=== PATIENT | female | born 1950 | race Caucasian/White ===

== ENCOUNTER 2018-09-11 09:49 | Emergency (ER) | payer MEDICARE ==
[2018-09-11] MEDS ORDERED: ASPIRIN 81 MG TABLET, CHEWABLE PO ONE (10:36)
--- NOTE | 2018-09-11 10:37 | ER Document Report ---
ED Medical Screen (RME) - General Chief Complaint: Chest Pain Stated Complaint: CHEST DISCOMFORT Time Seen by Provider: 09/11/18 10:34 Mode of Arrival: Wheelchair Information source: Patient Notes: This is a pleasant 67-year-old woman with a history of COPD the presents to the emergency room with a warm sensation in her chest spreading out to her arms. She is states that she has had shakiness with this sensation. She has no history of heart problems and this issue started yesterday. TRAVEL OUTSIDE OF THE [place] IN LAST 30 DAYS: No - Related Data Allergies/Adverse Reactions: No Known Allergies Allergy (Verified 09/11/18 09:51) Past Medical History - Social History Chew tobacco use (# tins/day): No Frequency of alcohol use: None Drug Abuse: None - Past Medical History Cardiac Medical History: Reports: Hx Hypercholesterolemia Pulmonary Medical History: Reports: Hx COPD - 2 days ago dx Renal/ Medical History: Denies: Hx Peritoneal Dialysis - Immunizations Hx Diphtheria, Pertussis, Tetanus Vaccination: Yes Physical Exam - Vital signs Vitals: Temp Pulse Resp BP Pulse Ox 98.6 F 87 16 145/87 H 98 09/11/18 10:04 09/11/18 10:04 09/11/18 10:04 09/11/18 10:04 09/11/18 10:04 Course - Vital Signs Vital signs: Temp Pulse Resp BP Pulse Ox 98.6 F 87 16 145/87 H 98 09/11/18 10:04 09/11/18 10:04 09/11/18 10:04 09/11/18 10:04 09/11/18 10:04
--- NOTE | 2018-09-11 11:07 | RADIOLOGY REPORT (SQ) ---
EXAM DESCRIPTION: CHEST SINGLE VIEW COMPLETED DATE/TIME: 09/11/2018 10:47 am REASON FOR STUDY: sob COMPARISON: 03/30/2016 EXAM PARAMETERS: NUMBER OF VIEWS: One view. TECHNIQUE: Single frontal radiographic view of the chest acquired. RADIATION DOSE: NA LIMITATIONS: None. FINDINGS: LUNGS AND PLEURA: Hyperexpansion of the lungs. No infiltrate or effusion or mass. MEDIASTINUM AND HILAR STRUCTURES: No masses. Contour normal. HEART AND VASCULAR STRUCTURES: Heart normal in size. Normal vasculature. BONES: No acute findings. HARDWARE: None in the chest. OTHER: No other significant finding. IMPRESSION: Chronic lung changes with no acute cardiopulmonary findings. TECHNICAL DOCUMENTATION: JOB ID: [id number] [employer]- All Rights Reserved Reading location - IP/workstation name: [email or web address]
[2018-09-11 11:09] LABS: ABSOLUTE BASOPHILS # (AUTO) 0.1 10^3/uL (0.0-0.2); ABSOLUTE EOSINOPHILS # (AUTO) 0.1 10^3/uL (0.0-0.6); ABSOLUTE LYMPHOCYTES (AUTO) 0.7 10^3/uL (0.5-4.7); ABSOLUTE MONOCYTES (AUTO) 0.3 10^3/uL (0.1-1.4); ABSOLUTE NEUT (AUTO) 7.3 10^3/uL (1.7-8.2); BASOPHILS % (AUTO) 0.6 % (0-2); EOSINOPHILS % (AUTO) 0.6 % (0-6); HEMOGLOBIN 13.7 g/dL (12.0-15.5); LYMPHOCYTES % (AUTO) 8.7 % (13-45); MEAN CORPUSCULAR HEMOGLOBIN 31.1 pg (27.0-33.4); MEAN CORPUSCULAR HGB CONC 34.4 g/dL (32.0-36.0); MEAN CORPUSCULAR VOLUME 90 fl (80-97); MONOCYTES % (AUTO) 3.4 % (3-13); PLATELET COUNT 306 10^3/uL (150-450); RED BLOOD COUNT 4.42 10^6/uL (3.72-5.28); RED CELL DISTRIBUTION WIDTH 14.1 % (11.5-14.0); SEGMENTED NEUTROPHILS % (AUTO) 86.7 % (42-78); TOTAL CELLS COUNTED % (AUTO) 100 %; WHITE BLOOD COUNT 8.5 10^3/uL (4.0-10.5)
[2018-09-11] MEDS ORDERED: MAG HYDROX/AL HYDROX/SIMETH SUSP 30 ML UDCUP PO ONE (11:23)
[2018-09-11] MEDS ORDERED: LIDOCAINE 2% VISCOUS SOLN 20 ML UDCUP PO ONE (11:23)
[2018-09-11] MEDS ORDERED: METOCLOPRAMIDE HCL ORAL SOLN 10 MG/10 ML UDCUP PO ONE (11:23)
[2018-09-11 11:26] LABS: ALANINE AMINOTRANSFERASE 21 U/L (9-52); ALBUMIN 4.4 g/dL (3.5-5.0); ALKALINE PHOSPHATASE 48 U/L (38-126); ANION GAP 8 (5-19); ASPARTATE AMINO TRANSFERASE 23 U/L (14-36); BILIRUBIN,DIRECT 0.2 mg/dL (0.0-0.4); BILIRUBIN,TOTAL 0.4 mg/dL (0.2-1.3); BLOOD UREA NITROGEN 10 mg/dL (7-20); CALCIUM 10.1 mg/dL (8.4-10.2); CARBON DIOXIDE 28 mmol/L (22-30); CHLORIDE 99 mmol/L (98-107); CREATINE KINASE 61 U/L (30-135); GLUCOSE 110 mg/dL (75-110); POTASSIUM 4.3 mmol/L (3.6-5.0); SODIUM 135.4 mmol/L (137-145); TOTAL PROTEIN 6.9 g/dL (6.3-8.2)
[2018-09-11 11:38] LABS: CREATINE KINASE MB 0.93 ng/mL (<4.55)
[2018-09-11 11:45] LABS: TROPONIN I < 0.012 ng/mL
--- NOTE | 2018-09-11 12:30 | ER Document Report ---
ED General - General Chief Complaint: Chest Pain Stated Complaint: CHEST DISCOMFORT Time Seen by Provider: 09/11/18 10:34 Mode of Arrival: Wheelchair TRAVEL OUTSIDE OF THE [place] IN LAST 30 DAYS: No - HPI Patient complains to provider of: Warm feeling in chest Notes: Patient coming in for evaluation of a warm feeling in her chest. Patient states this happened now twice in the last 2 days. Patient states that the warm feeling feels like "menopause in my chest". Patient denies any nausea vomiting fevers chills denies any radiation of her pain to her neck or to her shoulders. Patient denies any triggering features such as eating walking drinking or sleeping. Patient states that episodes have happened very randomly. Patient states that history of COPD and is only appropriate bronchodilator medications patient denies any diabetes or hypertension hyperlipidemia. Patient denies any recent travel or antibiotics. Patient does state a possible history of acid reflux however patient does not think that her symptoms are consistent with her acid reflux flares in the past. Patient denies pain but describes as a warming feeling in her chest substernal just above the epigastric region - Related Data Allergies/Adverse Reactions: No Known Allergies Allergy (Verified 09/11/18 09:51) Home Medications: advair. spiriva. daliresp Past Medical History - General Information source: Patient - Social History Smoking Status: Former Smoker Chew tobacco use (# tins/day): No Frequency of alcohol use: None Drug Abuse: None Family History: Reviewed & Not Pertinent Patient has suicidal ideation: No Patient has homicidal ideation: No - Past Medical History Cardiac Medical History: Reports: Hx Hypercholesterolemia Pulmonary Medical History: Reports: Hx COPD - 2 days ago dx Renal/ Medical History: Denies: Hx Peritoneal Dialysis - Immunizations Hx Diphtheria, Pertussis, Tetanus Vaccination: Yes Review of Systems - Review of Systems Constitutional: No symptoms reported EENT: No symptoms reported Cardiovascular: Chest pain - Warm feeling in the chest Respiratory: No symptoms reported Gastrointestinal: No symptoms reported Genitourinary: No symptoms reported Female Genitourinary: No symptoms reported Musculoskeletal: No symptoms reported Skin: No symptoms reported Hematologic/Lymphatic: No symptoms reported Neurological/Psychological: No symptoms reported Physical Exam - Vital signs Vitals: Temp Pulse Resp BP Pulse Ox 98.6 F 87 16 145/87 H 98 09/11/18 10:04 09/11/18 10:04 09/11/18 10:04 09/11/18 10:04 09/11/18 10:04 Interpretation: Normal - General General appearance: Appears well, Alert - HEENT Head: Normocephalic, Atraumatic Eyes: Normal Pupils: PERRL - Respiratory Respiratory status: No respiratory distress Chest status: Nontender Breath sounds: Normal Chest palpation: Normal - Cardiovascular Rhythm: Regular Heart sounds: Normal auscultation Murmur: No - Abdominal Inspection: Normal Distension: No distension Bowel sounds: Normal Tenderness: Nontender Organomegaly: No organomegaly - Back Back: Normal, Nontender - Extremities General upper extremity: Normal inspection, Nontender, Normal color, Normal ROM, Normal temperature General lower extremity: Normal inspection, Nontender, Normal color, Normal ROM, Normal temperature, Normal weight bearing. No: Conchita's sign - Neurological Neuro grossly intact: Yes Cognition: Normal Orientation: AAOx4 Johann Coma Scale Eye Opening: Spontaneous Johann Coma Scale Verbal: Oriented [place] Coma Scale Motor: Obeys Commands Johann Coma Scale Total: 15 Speech: Normal Motor strength normal: LUE, RUE, LLE, RLE Sensory: Normal - Psychological Associated symptoms: Normal affect, Normal mood - Skin Skin Temperature: Warm Skin Moisture: Dry Skin Color: Normal Course - Re-evaluation Re-evalutation: 09/12/18 06:43 EKG troponin chest x-ray did not show any critical pathology. Patient was given a GI cocktail with no further symptoms experienced during her ER stay. Unclear etiology of the warm feeling in her chest did recommend the patient follow-up with her primary care physician will place the patient on Zantac for the next 7days. The patient has atypical chest pain as the patient's chest pain is not suggestive of pulmonary embolus, cardiac ischemia, aortic dissection, or other serious etiology. Given the extremely low risk of these diagnoses further testing and evaluation for these possibilities does not appear to be indicated at this time. The patient has been instructed to return if the symptoms worsen or change in any way. - Vital Signs Vital signs: Temp Pulse Resp BP Pulse Ox 98.3 F 88 16 124/71 97 09/11/18 12:37 09/11/18 12:37 09/11/18 12:37 09/11/18 12:37 09/11/18 12:37 - Laboratory Result Diagrams: 09/11/18 10:55 09/11/18 10:55 Laboratory results interpreted by me: 09/11/18 09/11/18 10:55 10:55 RDW 14.1 H Seg Neutrophils % 86.7 H Lymphocytes % 8.7 L Sodium 135.4 L Discharge - Discharge Clinical Impression: Feeling of warmness, Chest pain, atypical Condition: Good Disposition: HOME, SELF-CARE Instructions: Chest Pain of Unclear Cause ([facility]) Additional Instructions: Your evaluation today shows normal EKG normal chest x-ray normal cardiac studies. Did not have a reason for the warm feeling in her chest this could be related to underlying acid reflux I would recommend taking Zantac as prescribed return to ER if symptoms worsen follow-up with your primary care physician Prescriptions: Ranitidine HCl [Zantac 75 mg Tablet] 75 mg PO BID #14 tablet Forms: Return to Work
[2018-09-11 12:38] VITALS: BP 124/71
--- NOTE | 2018-09-11 18:13 | EKG REPORT ---
SEVERITY:- BORDERLINE ECG - SINUS RHYTHM BORDERLINE T ABNORMALITIES, ANT-LAT LEADS : Confirmed by: Jinny Feldman MD 11-Sep-2018 18:12:56
== END 2018-09-11 12:45 | disposition home or self-care (01) ==
LOC: ER 09:49
DX: R07.89 Other chest pain (principal); J44.9 Chronic obstructive pulmonary disease, unspecified; Z79.899 Other long term (current) drug therapy; Z87.891 Personal history of nicotine dependence
CPT/HCPCS: 93005; 99285; 36415; 82553; 82550; 85025; 80053; 84484; 71045; 93010; J3490; A9270

== ENCOUNTER → 2018-10-22 | Outpatient (CLI) | payer MEDICARE ==
--- NOTE | 2018-10-22 14:01 | WOMENS IMAGING REPORT ---
EXAM DESCRIPTION: 3D SCREENING MAMMO BILAT COMPLETED DATE/TIME: 10/22/2018 9:03 am REASON FOR STUDY: Z12.31 ROUTINE 3D BILATERAL SCREENING Z12.31 ENCNTR SCREEN MAMMOGRAM FOR MALIGNAN T NEOPLASM OF DOMINICK COMPARISON: None. TECHNIQUE: Standard craniocaudal and mediolateral oblique views of each breast recorded using digita l acquisition and breast tomosynthesis. LIMITATIONS: None. FINDINGS: No masses, calcifications or architectural distortion. No areas of suspicion. Read with the assistance of CAD. .[facility] - R2 Cenova Version 1.3 .[facility] - R2 Cenova Version 2.1 .[facility] - R2 Cenova Version 2.4 .[facility] [place] R2 Cenova Version 2.4 .[facility] - R2 [employer] Fixture Repairer Version 9.2 IMPRESSION: NORMAL MAMMOGRAM. BIRADS 1. BREAST DENSITY: b. There are scattered areas of fibroglandular density. BIRAD: 1 NEGATIVE RECOMMENDATION: ROUTINE SCREENING COMMENT: The patient has been notified of the results by letter per SA requirements. Additional no tification policies are in place for contacting patient with suspicious or incomplete findings. Quality ID #[id number]: The [employer] recommends an annual screening mammogram for women aged 40 years or over. This facility utilizes a reminder system to ensure that all patients receive reminder letters, and/or direct phone calls for appointments. This includes reminders for routine scr eening mammograms, diagnostic mammograms, or other Breast Imaging Interventions when appropriate. Th is patient will be placed in the appropriate reminder system. The [employer] (ACR) has developed recommendations for screening MRI of the breast s in certain patient populations, to be used in conjunction with mammography. Breast MRI surveillanc e may be appropriate for women with more than 20% lifetime risk of developing breast cancer as deter mined by genetic testing, significant family history of the disease, or history of mantle radiation f or Hodgkins Disease. ACR Practice Guidelines 2008. DBT Technology DBT is a type of tomographic mammography. With conventional mammography, overlapping breast tissue ma y make lesions difficult to detect, even with good compression. DBT uses an x-ray tube that rotates a round the breast, taking images at different angles. These images are then combined to create thin sl ices of the breast that the radiologist can view as a 3D reconstruction. The [employer] unit can perform full-field digital mammograms (2D imaging); or DBT (3D imaging); or both, in a combination mode that quickly performs both the mammogram and the tomosynthesis scan while the breast is still compressed. PQRS 6045F: Fluoroscopic imaging is not utilized for breast tomosynthesis. TECHNICAL DOCUMENTATION: FINDING NUMBER: (1) ASSESSMENT: (1) JOB ID: [id number] [employer]- All Rights Reserved Reading location - IP/workstation name: [email or web address] [id number]
== END ==
LOC: WI 08:35
PROVIDERS: ATTEND Nurse Practitioner Family
DX: Z12.31 Encounter for screening mammogram for malignant neoplasm of breast (principal)
CPT/HCPCS: 77063; 77067

== ENCOUNTER 2018-11-27 10:08 | Emergency (ER) | payer MEDICARE ==
[2018-11-27 10:20] VITALS: BP 134/84
[2018-11-27] MEDS ORDERED: ASPIRIN 81 MG TABLET, CHEWABLE PO ONE (10:32)
--- NOTE | 2018-11-27 10:35 | ER Document Report ---
ED Medical Screen (RME) - General Chief Complaint: Chest Pain Stated Complaint: RAPID HEART RATE Time Seen by Provider: 11/27/18 10:30 Primary Care Provider: LEDA CAMERON FNP-C [Primary Care Provider] - Follow up as needed Mode of Arrival: Ambulatory Information source: Patient Notes: Patient presents complaining of rapid heart rate intermittently since yesterday. Patient does complain of some chest tenderness as well. Patient states she has had a mild cough but does have COPD. Patient denies any fever nausea or vomiting. I have greeted and performed a rapid initial assessment of this patient. A comprehensive ED assessment and evaluation of the patient, analysis of test results and completion of the medical decision making process will be conducted by additional ED providers. TRAVEL OUTSIDE OF THE [place] IN LAST 30 DAYS: No - Related Data Allergies/Adverse Reactions: No Known Allergies Allergy (Verified 11/27/18 10:10) Past Medical History - Past Medical History Cardiac Medical History: Reports: Hx Hypercholesterolemia Pulmonary Medical History: Reports: Hx COPD - 2 days ago dx Renal/ Medical History: Denies: Hx Peritoneal Dialysis - Immunizations Hx Diphtheria, Pertussis, Tetanus Vaccination: Yes Physical Exam - Vital signs Vitals: Temp Pulse Resp BP Pulse Ox 98.1 F 97 18 134/84 H 90 L 11/27/18 10:18 11/27/18 10:18 11/27/18 10:18 11/27/18 10:18 11/27/18 10:18 - Respiratory Respiratory status: No respiratory distress Breath sounds: Nonproductive cough - Cardiovascular Rhythm: Regular. No: Tachycardia Heart sounds: S1 appreciated, S2 appreciated Course - Vital Signs Vital signs: Temp Pulse Resp BP Pulse Ox 98.1 F 97 18 134/84 H 90 L 11/27/18 10:18 11/27/18 10:18 11/27/18 10:18 11/27/18 10:18 11/27/18 10:18 Doctor's Discharge - Discharge Referrals: LEDA CAMERON FNP-C [Primary Care Provider] - Follow up as needed
[2018-11-27 10:57] LABS: ABSOLUTE EOSINOPHILS # (AUTO) 0.1 10^3/uL (0.0-0.6); ABSOLUTE LYMPHOCYTES (AUTO) 0.8 10^3/uL (0.5-4.7); ABSOLUTE MONOCYTES (AUTO) 0.3 10^3/uL (0.1-1.4); ABSOLUTE NEUT (AUTO) 5.9 10^3/uL (1.7-8.2); BASOPHILS % (AUTO) 0.4 % (0-2); EOSINOPHILS % (AUTO) 1.1 % (0-6); HEMATOCRIT 45.2 % (36.0-47.0); HEMOGLOBIN 14.9 g/dL (12.0-15.5); LYMPHOCYTES % (AUTO) 10.9 % (13-45); MEAN CORPUSCULAR HEMOGLOBIN 29.7 pg (27.0-33.4); MEAN CORPUSCULAR HGB CONC 32.9 g/dL (32.0-36.0); MEAN CORPUSCULAR VOLUME 90 fl (80-97); MONOCYTES % (AUTO) 4.3 % (3-13); PLATELET COUNT 308 10^3/uL (150-450); SEGMENTED NEUTROPHILS % (AUTO) 83.3 % (42-78); TOTAL CELLS COUNTED % (AUTO) 100 %
[2018-11-27 11:08] LABS: APPEARANCE,URINE SLIGHTLY-CLOUDY; BILIRUBIN,URINE NEGATIVE (NEGATIVE); COLOR,URINE YELLOW; GLUCOSE, URINE NEGATIVE (NEGATIVE); KETONES,URINE TRACE mg/dL (NEGATIVE); LEUKOCYTE ESTERASE,URINE NEGATIVE (NEGATIVE); NITRITE,URINE NEGATIVE (NEGATIVE); PROTEIN,URINE NEGATIVE (NEGATIVE); URINE SPECIFIC GRAVITY 1.009; UROBILINOGEN,URINE NEGATIVE mg/dL (<2.0)
[2018-11-27 11:14] LABS: ALANINE AMINOTRANSFERASE 29 U/L (9-52); ALBUMIN 4.3 g/dL (3.5-5.0); ALKALINE PHOSPHATASE 55 U/L (38-126); ANION GAP 10 (5-19); ASPARTATE AMINO TRANSFERASE 26 U/L (14-36); BILIRUBIN,DIRECT 0.3 mg/dL (0.0-0.4); BILIRUBIN,TOTAL 0.6 mg/dL (0.2-1.3); BLOOD UREA NITROGEN 7 mg/dL (7-20); CALCIUM 10.2 mg/dL (8.4-10.2); CARBON DIOXIDE 30 mmol/L (22-30); CHLORIDE 98 mmol/L (98-107); GLUCOSE 102 mg/dL (75-110); POTASSIUM 4.1 mmol/L (3.6-5.0); SODIUM 137.9 mmol/L (137-145); TOTAL PROTEIN 7.2 g/dL (6.3-8.2)
--- NOTE | 2018-11-27 11:36 | RADIOLOGY REPORT (SQ) ---
EXAM DESCRIPTION: CHEST 2 VIEWS COMPLETED DATE/TIME: 11/27/2018 11:21 am REASON FOR STUDY: cp COMPARISON: 09/11/2018 EXAM PARAMETERS: NUMBER OF VIEWS: two views TECHNIQUE: Digital Frontal and Lateral radiographic views of the chest acquired. RADIATION DOSE: NA LIMITATIONS: none FINDINGS: LUNGS AND PLEURA: No opacities, masses or pneumothorax. No pleural effusion. Marked hyper inflation MEDIASTINUM AND HILAR STRUCTURES: No masses or contour abnormalities. HEART AND VASCULAR STRUCTURES: Heart normal size. No evidence for failure. BONES: No acute findings. HARDWARE: None in the chest. OTHER: No other significant finding. IMPRESSION: Advanced COPD. No acute findings. TECHNICAL DOCUMENTATION: JOB ID: [id number] [employer] [facility]- All Rights Reserved Reading location - IP/workstation name: [email or web address]
[2018-11-27] MEDS ORDERED: MAG HYDROX/AL HYDROX/SIMETH SUSP 30 ML UDCUP PO ONE (12:27)
[2018-11-27] MEDS ORDERED: METOCLOPRAMIDE HCL ORAL SOLN 10 MG/10 ML UDCUP PO ONE (12:27)
[2018-11-27] MEDS ORDERED: LIDOCAINE 2% VISCOUS SOLN 20 ML UDCUP PO ONE (12:27)
--- NOTE | 2018-11-27 12:34 | ER Document Report ---
ED General - General Chief Complaint: Chest Pain Stated Complaint: RAPID HEART RATE Time Seen by Provider: 11/27/18 10:30 Primary Care Provider: LEDA CAMERON FNP-C [Primary Care Provider] - Follow up in 3-5 days Mode of Arrival: Ambulatory Information source: Patient Notes: Patient presents emergency department with complaints of fast heart rate and chest on fire. Patient reports that this happened to her last month and she was told she had reflux. She reports it occurred yesterday she went to see her provider Dr. Vidal and he told her it was reflux. It happened again this morning when she was eating coffee and Cheerios she contacted her primary care provider and he told her to come the emergency department for evaluation. She reports she was placed on Prilosec for the symptoms but it does not seem to be working. She reports she received a GI cocktail when she was here in the emergency department last time and it worked. She denies other symptoms such as fever vomiting diarrhea. Denies pain when moving. Denies history of cardiac disease. She does report that Dr. Vidal her primary care provider is setting her up with a controlled area checker for evaluation possible stress test. Patient has history of COPD. Uses home O2 when she rides her stationary bike. Denies fever vomiting diarrhea. TRAVEL OUTSIDE OF THE [place] IN LAST 30 DAYS: No - HPI Onset: This morning Onset/Duration: Persistent Quality of pain: Other - hot sensation Pain Level: 3 Associated symptoms: None Exacerbated by: Denies Relieved by: Denies Similar symptoms previously: Yes Recently seen / treated by doctor: Yes - Related Data Allergies/Adverse Reactions: No Known Allergies Allergy (Verified 11/27/18 10:10) Past Medical History - General Information source: Patient - Social History Smoking Status: Former Smoker Cigarette use (# per day): No Chew tobacco use (# tins/day): No Frequency of alcohol use: None Drug Abuse: None Family History: Reviewed & Not Pertinent Patient has suicidal ideation: No Patient has homicidal ideation: No - Past Medical History Cardiac Medical History: Reports: Hx Hypercholesterolemia Pulmonary Medical History: Reports: Hx COPD - 2 days ago dx Renal/ Medical History: Denies: Hx Peritoneal Dialysis - Immunizations Hx Diphtheria, Pertussis, Tetanus Vaccination: Yes Review of Systems - Review of Systems Notes: Review HPI for review of systems., All other systems negative Physical Exam - Vital signs Vitals: Temp Pulse Resp BP Pulse Ox 98.1 F 97 18 134/84 H 90 L 11/27/18 10:18 11/27/18 10:18 11/27/18 10:18 11/27/18 10:18 11/27/18 10:18 - General General appearance: Appears well, Alert, Anxious In distress: None - HEENT Head: Normocephalic Eyes: Normal Conjunctiva: Normal Extraocular movements intact: Yes Mucous membranes: Moist Neck: Normal, Supple. No: Lymphadenopathy - Respiratory Respiratory status: No respiratory distress Chest status: Nontender Chest palpation: Normal - Cardiovascular Rhythm: Regular Heart sounds: Normal auscultation Murmur: No - Abdominal Inspection: Normal Tenderness: Nontender - Extremities General upper extremity: Normal ROM General lower extremity: Normal ROM - Neurological Neuro grossly intact: Yes Cognition: Normal Orientation: AAOx4 Johann Coma Scale Eye Opening: Spontaneous Johann Coma Scale Verbal: Oriented Speech: Normal - Psychological Associated symptoms: Normal affect, Normal mood - Skin Skin Temperature: Warm Skin Moisture: Dry Skin Color: Normal Course - Re-evaluation Re-evalutation: 11/27/18 12:35 Labs unremarkable. EKG troponin chest x-ray did not show any critical pathology. Patient was given a GI cocktail with no further symptoms experienced during her ER stay. Unclear etiology of the warm feeling in her chest did recommend the patient follow-up with her primary care physician, GI and cardiology for further evaluation. Patient reports she is waiting for cardiology referral. The patient has atypical chest pain as the patient's chest pain is not suggestive of pulmonary embolus, cardiac ischemia, aortic dissection, or other serious etiology. Given the extremely low risk of these diagnoses further testing and evaluation for these possibilities does not appear to be indicated at this time. The patient has been instructed to return if the symptoms worsen or change in any way. 11/27/18 13:19 Patient reports she feels fine now. We discussed treatment for reflux. We also discussed the importance of follow-up with GI and cardiology. - Vital Signs Vital signs: Temp Pulse Resp BP Pulse Ox 98.1 F 97 18 134/84 H 90 L 11/27/18 10:18 11/27/18 10:18 11/27/18 10:18 11/27/18 10:18 11/27/18 10:18 - Laboratory Result Diagrams: 11/27/18 10:35 11/27/18 10:35 Laboratory results interpreted by me: 11/27/18 11/27/18 10:35 10:35 Seg Neutrophils % 83.3 H Lymphocytes % 10.9 L Urine Ketones TRACE H - Diagnostic Test Radiology reviewed: Image reviewed, Reports reviewed - EXAM DESCRIPTION: CHEST 2 VIEWS COMPLETED DATE/TIME: 11/27/2018 11:21 am REASON FOR STUDY: cp COMPARISON: 09/11/2018 EXAM PARAMETERS: NUMBER OF VIEWS: two views TECHNIQUE: Digital Frontal and Lateral radiographic views of the chest acquired. RADIATION DOSE: NA LIMITATIONS: none FINDINGS: LUNGS AND PLEURA: No opacities, masses or pneumothorax. No pleural effusion. Marked hyperinflation MEDIASTINUM AND HILAR STRUCTURES: No masses or contour abnormalities. HEART AND VASCULAR STRUCTURES: Heart normal size. No evidence for failure. BONES: No acute findings. HARDWARE: None in the chest. OTHER: No other significant finding. IMPRESSION: Advanced COPD. No acute findings - EKG Interpretation by Me EKG shows normal: Sinus rhythm Rate: Normal Rhythm: NSR Additional EKG results interpreted by me: 11/27/18 12:[address] elevation no T wave inversion Discharge - Discharge Clinical Impression: feeling of chest heat, feeling of fast heart rate Condition: Stable Disposition: HOME, SELF-CARE Instructions: Chest Pain of Unclear Cause ([facility]), Reflux Disease (GERD) ([facility]) Additional Instructions: *You have been evaluated for feeling of fast heart rate, chest heat *Take your medication as prescribed *Follow up with Dr Vidal within the next week for referrral to GI *Follow up with cardiology- check with Dr. Mederos office to for time of your appointment *Return to ED for worsening condition, changes, needs *Return to ED if not better in 24 hours Referrals: LEDA CAMERON, IT NETWORK ADMINISTRATOR-C [Primary Care Provider] - Follow up in 3-5 days
--- NOTE | 2018-11-27 17:40 | EKG REPORT ---
SEVERITY:- NORMAL ECG - SINUS RHYTHM : Confirmed by: Deloris Kulkarni 27-Nov-2018 17:39:35
== END 2018-11-27 13:50 | disposition home or self-care (01) ==
LOC: ER 10:08
DX: R07.9 Chest pain, unspecified (principal); R00.2 Palpitations; J44.9 Chronic obstructive pulmonary disease, unspecified; Z87.891 Personal history of nicotine dependence
CPT/HCPCS: 93005; 99285; 36415; 83735; 84443; 85025; 80053; 81001; 84484; 71046; 93010; A9270 ×2; J3490

== ENCOUNTER 2018-11-30 11:05 | Emergency (ER) | payer MEDICARE ==
[2018-11-30] MEDS ORDERED: ASPIRIN 81 MG TABLET, CHEWABLE PO ONE (13:34)
[2018-11-30 13:46] LABS: ABSOLUTE LYMPHOCYTES (AUTO) 0.9 10^3/uL (0.5-4.7); ABSOLUTE MONOCYTES (AUTO) 0.3 10^3/uL (0.1-1.4); ABSOLUTE NEUT (AUTO) 4.9 10^3/uL (1.7-8.2); BASOPHILS % (AUTO) 0.3 % (0-2); EOSINOPHILS % (AUTO) 0.6 % (0-6); HEMATOCRIT 42.1 % (36.0-47.0); HEMOGLOBIN 13.9 g/dL (12.0-15.5); LYMPHOCYTES % (AUTO) 14.8 % (13-45); MEAN CORPUSCULAR HEMOGLOBIN 29.8 pg (27.0-33.4); MEAN CORPUSCULAR VOLUME 91 fl (80-97); MONOCYTES % (AUTO) 5.6 % (3-13); PLATELET COUNT 296 10^3/uL (150-450); RED BLOOD COUNT 4.65 10^6/uL (3.72-5.28); RED CELL DISTRIBUTION WIDTH 13.8 % (11.5-14.0); SEGMENTED NEUTROPHILS % (AUTO) 78.7 % (42-78); TOTAL CELLS COUNTED % (AUTO) 100 %; WHITE BLOOD COUNT 6.3 10^3/uL (4.0-10.5)
[2018-11-30 13:50] LABS: INTERNATIONAL RATION (INR) 0.83; PROTHROMBIN TIME 11.8 SEC (11.4-15.4)
[2018-11-30 13:53] LABS: ALANINE AMINOTRANSFERASE 28 U/L (9-52); ALBUMIN 4.3 g/dL (3.5-5.0); ALKALINE PHOSPHATASE 54 U/L (38-126); ANION GAP 11 (5-19); ASPARTATE AMINO TRANSFERASE 24 U/L (14-36); BILIRUBIN,DIRECT 0.3 mg/dL (0.0-0.4); BILIRUBIN,TOTAL 0.4 mg/dL (0.2-1.3); BLOOD UREA NITROGEN 6 mg/dL (7-20); CALCIUM 9.8 mg/dL (8.4-10.2); CARBON DIOXIDE 30 mmol/L (22-30); CHLORIDE 95 mmol/L (98-107); CREATINE KINASE 51 U/L (30-135); GLUCOSE 105 mg/dL (75-110); POTASSIUM 4.4 mmol/L (3.6-5.0); SODIUM 135.5 mmol/L (137-145)
[2018-11-30 14:04] LABS: CREATINE KINASE MB 0.95 ng/mL (<4.55)
[2018-11-30 14:06] LABS: TROPONIN I < 0.012 ng/mL
--- NOTE | 2018-11-30 14:06 | RADIOLOGY REPORT (SQ) ---
EXAM DESCRIPTION: CHEST SINGLE VIEW COMPLETED DATE/TIME: 11/30/2018 1:50 pm REASON FOR STUDY: CP COMPARISON: None. EXAM PARAMETERS: NUMBER OF VIEWS: One view. TECHNIQUE: Single frontal radiographic view of the chest acquired. RADIATION DOSE: NA LIMITATIONS: None. FINDINGS: LUNGS AND PLEURA: Hyperinflation of the lungs consistent with COPD. MEDIASTINUM AND HILAR STRUCTURES: No masses. Contour normal. HEART AND VASCULAR STRUCTURES: The heart is normal with normal pulmonary vasculature. BONES: No acute findings. HARDWARE: None in the chest. OTHER: No other significant finding. IMPRESSION: COPD. TECHNICAL DOCUMENTATION: JOB ID: [id number] [employer]- All Rights Reserved Reading location - IP/workstation name: [email or web address]
[2018-11-30] MEDS ORDERED: SUCRALFATE 1 GM TABLET PO ONE (15:15)
[2018-11-30] MEDS ORDERED: FAMOTIDINE INJ/PF 20 MG/2 ML SDV IV ONE (15:16)
--- NOTE | 2018-11-30 16:23 | EKG REPORT ---
SEVERITY:- BORDERLINE ECG - SINUS RHYTHM PROBABLE LEFT ATRIAL ABNORMALITY : Confirmed by: Deloris Kulkarni 30-Nov-2018 16:22:28
--- NOTE | 2018-11-30 16:23 | EKG REPORT ---
SEVERITY:- NORMAL ECG - SINUS RHYTHM : Confirmed by: Deloris Kulkarni 30-Nov-2018 16:22:20
[2018-11-30] MEDS ORDERED: MAG HYDROX/AL HYDROX/SIMETH SUSP 30 ML UDCUP PO ONE (16:27)
[2018-11-30] MEDS ORDERED: LIDOCAINE 2% VISCOUS SOLN 20 ML UDCUP PO ONE (16:27)
[2018-11-30] MEDS ORDERED: METOCLOPRAMIDE HCL ORAL SOLN 10 MG/10 ML UDCUP PO ONE (16:27)
--- NOTE | 2018-11-30 16:57 | ER Document Report ---
ED General - General Chief Complaint: Chest Pain Stated Complaint: RAPID HEARTBEAT Time Seen by Provider: 11/30/18 13:34 Primary Care Provider: LEDA CAMERON FNP-C [Primary Care Provider] - Follow up as needed Notes: Patient was seen at this facility on 11/27/2018 for similar symptoms as today's visit. Patient is a 68-year-old female presents to the emergency department complaining of a burning sensation in her chest. States it radiates up into her throat. Patient states she has been to this facility multiple times for same. States she is always told that it is indigestion and was placed on omeprazole. States she takes 20 mg once a day. Patient states today she got very concerned that it was her heart which presents her to the emergency room. Patient is denying shortness of breath, diaphoresis, nausea, vomiting. States pain started this morning after drinking coffee. Past medical history: GERD, COPD (patient states she quit smoking over 10 years ago) Medications: Omeprazole Allergies: None TRAVEL OUTSIDE OF THE [place] IN LAST 30 DAYS: No - Related Data Allergies/Adverse Reactions: No Known Allergies Allergy (Verified 11/30/18 11:05) Past Medical History - General Information source: Patient - Social History Smoking Status: Former Smoker Family History: Reviewed & Not Pertinent Patient has suicidal ideation: No Patient has homicidal ideation: No - Past Medical History Cardiac Medical History: Reports: Hx Hypercholesterolemia Pulmonary Medical History: Reports: Hx COPD - 2 days ago dx Renal/ Medical History: Denies: Hx Peritoneal Dialysis - Immunizations Hx Diphtheria, Pertussis, Tetanus Vaccination: Yes Review of Systems - Review of Systems Constitutional: No symptoms reported EENT: No symptoms reported Cardiovascular: See HPI Respiratory: No symptoms reported Gastrointestinal: See HPI Genitourinary: No symptoms reported Female Genitourinary: No symptoms reported Musculoskeletal: No symptoms reported Skin: No symptoms reported Hematologic/Lymphatic: No symptoms reported Neurological/Psychological: No symptoms reported Physical Exam - Vital signs Vitals: Temp Pulse Resp BP Pulse Ox 98.1 F 98 16 149/77 H 91 L 11/30/18 11:15 11/30/18 11:15 11/30/18 11:15 11/30/18 11:15 11/30/18 11:15 - Notes Notes: GENERAL: Alert, interacts well. No acute distress. HEAD: Normocephalic, atraumatic. EYES: Pupils equal, round, and reactive to light. Extraocular movements intact. ENT: Oral mucosa moist, tongue midline. NECK: Full range of motion. Supple. Trachea midline. LUNGS: Clear to auscultation bilaterally, no wheezes, rales, or rhonchi. No respiratory distress. HEART: Regular rate and rhythm. No murmur ABDOMEN: Soft, non-tender. Non-distended. Bowel sounds present in all 4 quadrants. EXTREMITIES: Moves all 4 extremities spontaneously. No edema, normal radial and dorsalis pedis pulses bilaterally. No cyanosis. BACK: no cervical, thoracic, lumbar midline tenderness. No saddle anesthesia, normal distal neurovascular exam. NEUROLOGICAL: Alert and oriented x3. Normal speech. cranial nerves II through XII grossly intact PSYCH: Normal affect, normal mood. SKIN: Warm, dry, normal turgor. No rashes or lesions noted. Course - Re-evaluation Re-evalutation: Patient is very concerned that this burning sensation is her heart. States she has been told that it is indigestion multiple times and she does not believe it. Discussed doing cardiac enzymes which would potentially lead us in the direction that this is not cardiac in nature. Patient is voicing understanding and wishes to continue with treatment plan. Patient's initial EKG shows a sinus rhythm rate of 98, QTc 435, no ST segment elevations or depressions noted. Patient's initial troponin negative Patient's repeat troponin also negative, repeat EKG shows a sinus rhythm rate 83, QTc 428, no ST segment elevations or depressions noted. Patient initially states after Carafate and Pepcid her "burning sensation" in her chest overall feels better but is not completely gone. She states a GI cocktail helped her in the past. GI cocktail ordered and administered. Patient states she no longer has any chest pain. Patient's heart score is a 2 due to her age only. Patient states she has an appointment with Dr. Mejias biofuels plant operations engineer on . Discussed need to keep that appointment and also return to the emergency room should she have any other concerns. Patient voices understanding, stable for discharge. 11/30/18 16:58 - Vital Signs Vital signs: Temp Pulse Resp BP Pulse Ox 98.1 F 98 18 124/73 98 11/30/18 11:15 11/30/18 11:15 11/30/18 13:01 11/30/18 13:01 11/30/18 13:52 - Laboratory Result Diagrams: 11/30/18 12:16 11/30/18 12:16 Laboratory results interpreted by me: 11/30/18 11/30/18 12:16 12:16 Seg Neutrophils % 78.7 H Sodium 135.5 L Chloride 95 L BUN 6 L Discharge - Discharge Clinical Impression: Gastritis Qualifiers: Gastritis type: unspecified gastritis Chronicity: acute Gastritis bleeding: without bleeding Qualified Code(s): K29.00 - Acute gastritis without bleeding Condition: Stable Disposition: HOME, SELF-CARE Instructions: Reflux Disease (GERD) ([facility]) Additional Instructions: As I discussed you have been seen and treated in the emergency department for your chest pain. Your chest pain appears to be indigestion related. Your EKG and cardiac enzymes were all normal during her visit here in the emergency room. This does not mean you should not follow-up with a biofuels plant operations engineer. Reconsignment Clerk can do further testing to rule out any injury to your heart. Please make sure you are taking prescription medications as prescribed and follow-up with your primary care provider as needed. Please return to the emergency room for any other concerns. Prescriptions: Famotidine [Pepcid 40 mg Tablet] 40 mg PO AC #30 tablet Sucralfate [Carafate 1 gm Tablet] 1 gm PO QID #60 tablet Referrals: LEDA CAMERON FNP-C [Primary Care Provider] - Follow up as needed
[2018-11-30 17:23] VITALS: BP 128/67
== END 2018-11-30 17:23 | disposition home or self-care (01) ==
LOC: ER 11:05
DX: K29.00 Acute gastritis without bleeding (principal); R07.9 Chest pain, unspecified; K21.9 Gastro-esophageal reflux disease without esophagitis; J44.9 Chronic obstructive pulmonary disease, unspecified; E78.00 Pure hypercholesterolemia, unspecified
CPT/HCPCS: 93005; 99285; 96374; 36415; 82553; 82550; 85025; 85610; 80053; 84484; 71045; 93010; A9270 ×3; J3490; S0028

== ENCOUNTER 2019-04-23 05:47 | Emergency (ER) | payer MEDICARE ==
[2019-04-23] MEDS ORDERED: ASPIRIN 81 MG TABLET, CHEWABLE PO ONE (06:58)
[2019-04-23 07:12] LABS: ABSOLUTE EOSINOPHILS # (AUTO) 0.1 10^3/uL (0.0-0.6); ABSOLUTE LYMPHOCYTES (AUTO) 0.7 10^3/uL (0.5-4.7); ABSOLUTE MONOCYTES (AUTO) 0.3 10^3/uL (0.1-1.4); ABSOLUTE NEUT (AUTO) 3.5 10^3/uL (1.7-8.2); BASOPHILS % (AUTO) 0.6 % (0-2); EOSINOPHILS % (AUTO) 1.1 % (0-6); HEMATOCRIT 38.7 % (36.0-47.0); HEMOGLOBIN 12.9 g/dL (12.0-15.5); LYMPHOCYTES % (AUTO) 15.8 % (13-45); MEAN CORPUSCULAR HEMOGLOBIN 29.8 pg (27.0-33.4); MEAN CORPUSCULAR HGB CONC 33.4 g/dL (32.0-36.0); MEAN CORPUSCULAR VOLUME 89 fl (80-97); PLATELET COUNT 302 10^3/uL (150-450); RED BLOOD COUNT 4.33 10^6/uL (3.72-5.28); RED CELL DISTRIBUTION WIDTH 13.9 % (11.5-14.0); SEGMENTED NEUTROPHILS % (AUTO) 76.5 % (42-78); TOTAL CELLS COUNTED % (AUTO) 100 %; WHITE BLOOD COUNT 4.6 10^3/uL (4.0-10.5)
--- NOTE | 2019-04-23 07:34 | RADIOLOGY REPORT (SQ) ---
Chest single view on 04/23/2019 at 7:09 AM CLINICAL INDICATION: Chest pain COMPARISON: 11/30/2018 FINDINGS: Emphysematous changes of the lungs are noted. Vascular calcification is noted in the aorta. The lungs are otherwise clear. Cardiac, hilar and mediastinal contours are within normal limits. Pulmonary vascularity is within normal limits. IMPRESSION: No significant change and no acute disease.
[2019-04-23 07:38] LABS: ALBUMIN 4.1 g/dL (3.5-5.0); ALKALINE PHOSPHATASE 48 U/L (38-126); ANION GAP 7 (5-19); ASPARTATE AMINO TRANSFERASE 24 U/L (14-36); BILIRUBIN,DIRECT 0.2 mg/dL (0.0-0.4); BILIRUBIN,TOTAL 0.7 mg/dL (0.2-1.3); BLOOD UREA NITROGEN 4 mg/dL (7-20); CALCIUM 9.4 mg/dL (8.4-10.2); CARBON DIOXIDE 30 mmol/L (22-30); CHLORIDE 98 mmol/L (98-107); CREATINE KINASE 88 U/L (30-135); GLUCOSE 103 mg/dL (75-110); TOTAL PROTEIN 6.8 g/dL (6.3-8.2)
[2019-04-23 07:51] LABS: TROPONIN I < 0.012 ng/mL
--- NOTE | 2019-04-23 08:17 | ER Document Report ---
ED Cardiac - General Chief Complaint: Chest Tightness Stated Complaint: TIGHT CHEST,LOSS OF APPETITE Time Seen by Provider: 04/23/19 07:26 Primary Care Provider: LEDA CAMERON FNP-C [Primary Care Provider] - Follow up as needed Mode of Arrival: Medic Information source: Patient TRAVEL OUTSIDE OF THE [place] IN LAST 30 DAYS: No - HPI Notes: Patient presents with central chest pain that is sharp. It is mild to moderate in intensity. It does radiate over the left chest. It does not seem to have anything that makes it better or worse. She has had no increase of shortness of breath with it. No new cough. No cold or congestion. She states she has had this exact same pain numerous times and each time she has been told is reflux. She is also had a previous stress test in January of this year that was "nondiagnostic. She saw her recruitment consultant yesterday, Dr. Kirkpatrick. Dr. Kirkpatrick ordered an echo. Patient has had no vomiting or diarrhea. Patient states it is possible that she is under stress lately but she is unsure. The pain has been somewhat of a sharp and pressure sensation. - Related Data Allergies/Adverse Reactions: No Known Allergies Allergy (Verified 11/30/18 11:05) Past Medical History - General Information source: Patient - Social History Smoking Status: Former Smoker Frequency of alcohol use: None Drug Abuse: None Family History: Reviewed & Not Pertinent Patient has suicidal ideation: No Patient has homicidal ideation: No - Past Medical History Cardiac Medical History: Reports: Hx Hypercholesterolemia Pulmonary Medical History: Reports: Hx COPD - 2 days ago dx Renal/ Medical History: Denies: Hx Peritoneal Dialysis - Immunizations Hx Diphtheria, Pertussis, Tetanus Vaccination: Yes Review of Systems - Review of Systems Constitutional: denies: Chills, Fever Cardiovascular: Chest pain. denies: Palpitations Respiratory: denies: Cough, Hemoptysis Gastrointestinal: denies: Abdominal pain, Diarrhea, Vomiting -: Yes All other systems reviewed and negative Physical Exam - Vital signs Vitals: Temp Pulse Resp BP Pulse Ox 97.7 F 94 18 132/82 H 94 04/23/19 05:51 04/23/19 05:51 04/23/19 05:51 04/23/19 05:51 04/23/19 05:51 Interpretation: Normal - General General appearance: Appears well, Alert - HEENT Head: Normocephalic, Atraumatic Eyes: Normal Pupils: PERRL - Respiratory Respiratory status: No respiratory distress Chest status: Nontender Breath sounds: Decreased air movement Chest palpation: Normal - Cardiovascular Rhythm: Regular Heart sounds: Normal auscultation Murmur: No - Abdominal Inspection: Normal Distension: No distension Bowel sounds: Normal Tenderness: Nontender Organomegaly: No organomegaly - Back Back: Normal, Nontender - Extremities General upper extremity: Normal inspection, Nontender, Normal color, Normal ROM, Normal temperature General lower extremity: Normal inspection, Nontender, Normal color, Normal ROM, Normal temperature, Normal weight bearing. No: Conchita's sign - Neurological Neuro grossly intact: Yes Cognition: Normal Orientation: AAOx4 [place] Coma Scale Eye Opening: Spontaneous Johann Coma Scale Verbal: Oriented [place] Coma Scale Motor: Obeys Commands Johann Coma Scale Total: 15 Speech: Normal Motor strength normal: LUE, RUE, LLE, RLE Sensory: Normal - Psychological Associated symptoms: Normal affect, Normal mood - Skin Skin Temperature: Warm Skin Moisture: Dry Skin Color: Normal Course - Re-evaluation Re-evalutation: 04/23/19 08:17 Patient presents with chest pain. She states it feels exactly like the previous time she was diagnosed with reflux. She has had a recent stress test that was nondiagnostic. She has no enzyme changes or EKG changes. I did discuss the case with her recruitment consultant who recommends that she be discharged and follow-up with them as an outpatient as they have an echo arranged. Patient is currently pain-free. I feel that outpatient work-up is appropriate course at this time. - Vital Signs Vital signs: Temp Pulse Resp BP Pulse Ox 97.7 F 94 20 123/68 100 04/23/19 05:51 04/23/19 05:51 04/23/19 07:00 04/23/19 06:52 04/23/19 07:00 - Laboratory Result Diagrams: 04/23/19 06:56 04/23/19 06:56 Laboratory results interpreted by me: 04/23/19 06:56 Sodium 135.0 L BUN 4 L - Diagnostic Test Radiology reviewed: Image reviewed, Reports reviewed - EKG Interpretation by Me EKG shows normal: Sinus rhythm Rate: Normal - 74 Rhythm: NSR Organ/QRS: No: Right axis deviation, Left axis deviation Discharge - Discharge Clinical Impression: Chest pain Qualifiers: Chest pain type: unspecified Qualified Code(s): R07.9 - Chest pain, unspecified Condition: Stable Disposition: HOME, SELF-CARE Instructions: Chest Pain of Unclear Cause ([facility]) Additional Instructions: Please call Dr. Kirkpatrick today to reschedule follow-up. Prescriptions: Lorazepam [Ativan 0.5 mg Tablet] 0.5 mg PO BID #12 tab Referrals: SUHAS KIRKPATRICK PA-C [PHYSICIAN DRY ROASTER] - Follow up tomorrow
[2019-04-23 09:05] VITALS: BP 123/76
--- NOTE | 2019-04-23 09:11 | EKG REPORT ---
SEVERITY:- BORDERLINE ECG - SINUS RHYTHM BORDERLINE T ABNORMALITIES, ANT-LAT LEADS : Confirmed by: Deloris Kulkarni 23-Apr-2019 09:11:07
== END 2019-04-23 09:06 | disposition home or self-care (01) ==
LOC: ER 05:47
DX: R07.89 Other chest pain (principal); J44.9 Chronic obstructive pulmonary disease, unspecified; Z87.891 Personal history of nicotine dependence; Z87.19 Personal history of other diseases of the digestive system
CPT/HCPCS: 93005; 36415; 82553; 82550; 85025; 80053; 84484; 71045; 93010; A9270; 99285

== ENCOUNTER 2019-07-19 16:10 | Emergency (ER) | payer MEDICARE ==
--- NOTE | 2019-07-19 17:02 | ER Document Report ---
ED Medical Screen (RME) - General Chief Complaint: Shortness Of Breath Stated Complaint: SHAKING/WARM SENSATION IN CHEST/DIFFICULTY BREATHI Time Seen by Provider: 07/19/19 16:45 Primary Care Provider: LEDA CAMERON FNP-C [Primary Care Provider] - Follow up as needed Mode of Arrival: Ambulatory Information source: Patient Notes: 68-year-old female with history of COPD presents emergency department with chief complaint of chest pain, shakiness and shortness of breath. Patient reports chest pain has been intermittent over the last few days, she states that she thought it was anxiety although she now she is getting concerned that maybe she was having a heart attack. She denies radiation of the pain, states the pain is intermittent and achy in nature. She denies any history of [place]. She is a former smoker, quit 10 years ago. She is speaking in full and complete sentences with no acute distress noted. I have greeted and performed a rapid initial assessment of this patient. A comprehensive ED assessment and evaluation of the patient, analysis of test results and completion of the medical decision making process will be conducted by additional ED providers. I have specifically instructed the patient or family members with the patient to immediately return to any nursing staff should anything change in the patient's condition or with their chief complaint. TRAVEL OUTSIDE OF THE [place] IN LAST 30 DAYS: No - Related Data Allergies/Adverse Reactions: No Known Allergies Allergy (Verified 11/30/18 11:05) Home Medications: Zoloft Past Medical History - Past Medical History Cardiac Medical History: Reports: Hx Hypercholesterolemia Pulmonary Medical History: Reports: Hx COPD - 2 days ago dx Renal/ Medical History: Denies: Hx Peritoneal Dialysis - Immunizations Hx Diphtheria, Pertussis, Tetanus Vaccination: Yes Physical Exam - Vital signs Vitals: Temp Pulse Resp BP Pulse Ox 98.1 F 105 H 18 133/68 H 95 07/19/19 16:48 07/19/19 16:48 07/19/19 16:48 07/19/19 16:48 07/19/19 16:48 Course - Vital Signs Vital signs: Temp Pulse Resp BP Pulse Ox 98.1 F 105 H 18 133/68 H 95 07/19/19 16:48 07/19/19 16:48 07/19/19 16:48 07/19/19 16:48 07/19/19 16:48 Doctor's Discharge - Discharge Referrals: LEDA CAMERON, SUPERVISOR [employer]QU[employer] YE[employer]-C [Primary Care Provider] - Follow up as needed
--- NOTE | 2019-07-19 17:48 | RADIOLOGY REPORT (SQ) ---
EXAM DESCRIPTION: CHEST 2 VIEWS COMPLETED DATE/TIME: 07/19/2019 4:20 pm REASON FOR STUDY: chest pain COMPARISON: Chest radiograph, 04/23/2019 EXAM PARAMETERS: NUMBER OF VIEWS: two views TECHNIQUE: Digital Frontal and Lateral radiographic views of the chest acquired. RADIATION DOSE: NA LIMITATIONS: none FINDINGS: LUNGS AND PLEURA: The lungs are hyperinflated. No opacities, masses or pneumothorax. No p leural effusion. MEDIASTINUM AND HILAR STRUCTURES: No masses or contour abnormalities. HEART AND VASCULAR STRUCTURES: Heart normal size. No evidence for failure. BONES: No acute findings. HARDWARE: None in the chest. OTHER: No other significant finding. IMPRESSION: No acute cardiopulmonary disease. Hyperinflated lungs which can be seen with obstructiv e lung disease. TECHNICAL DOCUMENTATION: JOB ID: [id number] Reissued- All Rights Reserved Reading location - IP/workstation name: [email or web address]
[2019-07-19 18:06] LABS: ABSOLUTE EOSINOPHILS # (AUTO) 0.1 10^3/uL (0.0-0.6); ABSOLUTE LYMPHOCYTES (AUTO) 0.9 10^3/uL (0.5-4.7); ABSOLUTE MONOCYTES (AUTO) 0.5 10^3/uL (0.1-1.4); ABSOLUTE NEUT (AUTO) 6.2 10^3/uL (1.7-8.2); BASOPHILS % (AUTO) 0.5 % (0-2); EOSINOPHILS % (AUTO) 1.3 % (0-6); HEMATOCRIT 44.1 % (36.0-47.0); HEMOGLOBIN 14.8 g/dL (12.0-15.5); LYMPHOCYTES % (AUTO) 11.2 % (13-45); MEAN CORPUSCULAR HEMOGLOBIN 30.3 pg (27.0-33.4); MEAN CORPUSCULAR HGB CONC 33.5 g/dL (32.0-36.0); MEAN CORPUSCULAR VOLUME 91 fl (80-97); PLATELET COUNT 300 10^3/uL (150-450); RED BLOOD COUNT 4.88 10^6/uL (3.72-5.28); TOTAL CELLS COUNTED % (AUTO) 100 %; WHITE BLOOD COUNT 7.6 10^3/uL (4.0-10.5)
[2019-07-19 18:24] LABS: ALBUMIN 4.4 g/dL (3.5-5.0); ALKALINE PHOSPHATASE 49 U/L (38-126); ANION GAP 8 (5-19); ASPARTATE AMINO TRANSFERASE 27 U/L (14-36); BILIRUBIN,DIRECT 0.2 mg/dL (0.0-0.4); BILIRUBIN,TOTAL 0.4 mg/dL (0.2-1.3); BLOOD UREA NITROGEN 8 mg/dL (7-20); CALCIUM 9.7 mg/dL (8.4-10.2); CARBON DIOXIDE 28 mmol/L (22-30); CHLORIDE 103 mmol/L (98-107); GLUCOSE 113 mg/dL (75-110); POTASSIUM 3.7 mmol/L (3.6-5.0); TOTAL PROTEIN 7.2 g/dL (6.3-8.2)
--- NOTE | 2019-07-19 19:05 | ER Document Report ---
ED General - General Chief Complaint: Shortness Of Breath Stated Complaint: SHAKING/WARM SENSATION IN CHEST/DIFFICULTY BREATHI Time Seen by Provider: 07/19/19 16:45 Primary Care Provider: BUFFY SAENZ MD [ACTIVE STAFF] - Follow up in 3-5 days HARRIS RÍOS MD [COMMUNITY BASED STAFF] - Follow up in 3-5 days LEDA CAEMRON, CANDY POLISHER-C [Primary Care Provider] - Follow up in 3-5 days DANIEL ARZOLA MD [EMERITUS] - Follow up in 1 month Mode of Arrival: Ambulatory Notes: Patient is a 68-year-old female who presents to the emergency department with shakiness and shortness of breath. Patient states that her symptoms have been going on off and on since September 2018. She denies any pain, but states that she has a fluttery feeling in her chest. Patient also states that she has anxiety. She was also concerned for heart attack. Patient denies any smoking, but is a former smoker. Patient also has COPD. Patient had a cath done this year. There were no findings at that time. Patient also wears oxygen during exercise and at night. TRAVEL OUTSIDE OF THE [place] IN LAST 30 DAYS: No - Related Data Allergies/Adverse Reactions: No Known Allergies Allergy (Verified 11/30/18 11:05) Home Medications: Zoloft Past Medical History - General Information source: Patient - Social History Smoking Status: Former Smoker Family History: Reviewed & Not Pertinent Patient has suicidal ideation: No Patient has homicidal ideation: No - Past Medical History Cardiac Medical History: Reports: Hx Hypercholesterolemia Pulmonary Medical History: Reports: Hx COPD - 2 days ago dx Renal/ Medical History: Denies: Hx Peritoneal Dialysis - Immunizations Hx Diphtheria, Pertussis, Tetanus Vaccination: Yes Review of Systems - Review of Systems Notes: REVIEW OF SYSTEMS: CONSTITUTIONAL : Denies recent illness. Denies recent unintentional weight loss. Denies fever, chills, or sweats. EENT: Denies eye, ear, throat, or mouth pain, discharge, or symptoms. Denies nasal or sinus congestion. CARDIOVASCULAR: See HPI. RESPIRATORY: See HPI. GASTROINTESTINAL: Denies nausea, vomiting, and diarrhea. Denies abdominal pain. Denies constipation. GENITOURINARY: Denies difficulty urinating, burning, blood in urine, urgency or frequency. MUSCULOSKELETAL: Denies neck and back pain. Denies joint pain or swelling. SKIN: Denies rash, itchiness, or lesions HEMATOLOGIC : Denies easy bruising or bleeding. LYMPHATIC: Denies swollen, painful, enlarged glands. NEUROLOGICAL: Denies no numbness or tingling denies weakness. Denies headache. Denies altered mental status. Denies alteration in speech. PSYCHIATRIC: Denies stress, anxiety, alteration in sleep patterns, or depression. All other systems reviewed and negative. Physical Exam - Vital signs Vitals: Temp Pulse Resp BP Pulse Ox 98.1 F 105 H 18 133/68 H 95 07/19/19 16:48 07/19/19 16:48 07/19/19 16:48 07/19/19 16:48 07/19/19 16:48 - Notes Notes: PHYSICAL EXAMINATION: GENERAL: Appears well, healthy, well-nourished, no acute distress. HEAD: Normocephalic, atraumatic. EYES: PERRL, conjunctiva normal, all extraocular movements intact, sclera nonicteric ENT: Moist mucous membranes. NECK: Supple, no noticeable swelling, redness, rash. Normal range of motion. LUNGS: Equal breath sounds bilaterally and clear to auscultation. No wheezes rales or rhonchi. CARDIOVASCULAR: S1-S2, regular rate, regular rhythm. Radial pulses 2+, normal. ABDOMEN: Normoactive bowel sounds. Soft, nontender, no guarding, no rebound tenderness, and no masses palpated. EXTREMITIES: Normal strength and range of motion, no pitting or edema. No cya nosis. NEUROLOGICAL: Moves all extremities upon command. Strength 5/5 in all extremities. PSYCH: Normal mood, normal affect. SKIN: Warm, dry. No rash, lesions, ulcerations noted. Normal skin turgor. Course - Re-evaluation Re-evalutation: 07/19/19 19:27 Patient states that she feels better after sitting in the emergency department. No pneumonia noted on chest x-ray per the radiologist. Chemistries are unremarkable. Troponin is negative. Hematology is unremarkable. Patient will follow-up with her primary care provider, cardiology, and pulmonology in regards to this visit. Have a very low suspicion for any life-threatening etiology at this time. Patient is in agreement that her symptoms are most likely caused by her anxiety. Patient states that she will take her anxiety medication when she gets home. - Vital Signs Vital signs: Temp Pulse Resp BP Pulse Ox 98.1 F 105 H 19 129/76 H 97 07/19/19 16:48 07/19/19 16:48 07/19/19 18:01 07/19/19 18:01 07/19/19 18:01 - Laboratory Result Diagrams: 07/19/19 17:37 07/19/19 17:37 Laboratory results interpreted by me: 07/19/19 07/19/19 17:37 17:37 Lymph % (Auto) 11.2 L Seg Neutrophils % 81.0 H Creatinine 0.49 L Glucose 113 H - EKG Interpretation by Me Additional EKG results interpreted by me: 07/19/19 19:26 Voice sinus tachycardia. Rate 100. [place] 148; QRS 474; QT 352; QTc 454. No ST elevations or depressions noted. Artifact noted in leads V4 and V5. Discharge - Discharge Clinical Impression: Shakiness, Anxiety, Shortness of breath Condition: Stable Disposition: HOME, SELF-CARE Additional Instructions: You were seen today in the emergency department for shakiness. Your labs and x- ray are reassuring. Please follow-up with the chemistry quality control technician and dairy equipment mechanic in regards to this visit. Take your anxiety medication as prescribed. Referrals: LEDA CAMERON, CANDY POLISHER-C [Primary Care Provider] - Follow up in 3-5 days DANIEL ARZOLA MD [EMERITUS] - Follow up in 1 month BUFFY SAENZ MD [ACTIVE STAFF] - Follow up in 3-5 days HARRIS RÍOS MD [COMMUNITY BASED STAFF] - Follow up in 3-5 days
[2019-07-19 19:38] VITALS: BP 119/70
--- NOTE | 2019-07-19 19:42 | EKG REPORT ---
SEVERITY:- OTHERWISE NORMAL ECG - SINUS TACHYCARDIA : Confirmed by: Deloris Kulkarni 19-Jul-2019 19:41:55
== END 2019-07-19 19:47 | disposition home or self-care (01) ==
LOC: ER 16:10
DX: R06.02 Shortness of breath (principal); F41.9 Anxiety disorder, unspecified; J44.9 Chronic obstructive pulmonary disease, unspecified; E78.00 Pure hypercholesterolemia, unspecified; Z87.891 Personal history of nicotine dependence
CPT/HCPCS: 36415; 71046; 80053; 84484; 85025; 93005; 93010; 99285